=== PATIENT | male | born 1945 | race Caucasian/White ===

== ENCOUNTER → 2023-07-30 06:37 | Day surgery (SDC) | payer MEDICARE, OTHER, SELFPAY | LOC: GI 06:37 | PROVIDERS: ATTENDING PHYSICIAN Internal Medicine Gastroenterology; FAMILY PHYSICIAN Family Medicine | DX: Z12.11 Encounter for screening for malignant neoplasm of colon (principal); K57.30 Diverticulosis of large intestine without perforation or abscess without bleeding; K64.8 Other hemorrhoids; K64.4 Residual hemorrhoidal skin tags; Z86.010 Personal history of colon polyps | CPT/HCPCS: 45378 ==